=== PATIENT | male | born 1975 | race Caucasian/White ===

== ENCOUNTER 2019-06-14 20:38 | Emergency (ER) | payer BC ==
[2019-06-14] MEDS ORDERED: Diphtheria,Pertussis(Acell),Tetanus Vaccine 0.5 ML Syringe IM ONE (20:58)
--- NOTE | 2019-06-14 21:05 | EDM.PDOC ---
ED HPI GENERAL MEDICAL PROBLEM - General Chief Complaint: Upper Extremity Injury/Pain Stated Complaint: SLAMMED FINGER IN THE DOOR Time Seen by Provider: 06/14/19 20:38 Source of Information: Reports: Patient History Limitations: Reports: No Limitations - History of Present Illness INITIAL COMMENTS - FREE TEXT/NARRATIVE: Pt. states that he slammed his L index finger in the car door at around 10AM. He states that the finger has continued to ooze blood throughout the day. Denies any injury elsewhere. His medical record indicates that his tetanus has not been updated since 1995. Onset Date: 06/14/19 Onset Time: 09:00 Location: Reports: Upper Extremity, Left Severity: Moderate Improves with: Reports: Rest Worsens with: Reports: Movement Left Finger-Index Pain Score (Numeric/FACES): 6 - Related Data Allergies Allergy/AdvReac Type Severity Reaction Status Date / Time No Known Allergies Allergy Verified 06/14/19 21:04 Home Meds: Home Meds Benzonatate [Tessalon Perle] 1 cap PO TID PRN 06/14/19 [History] Doxycycline [Vibramycin] 1 cap PO BID 06/14/19 [History] Past Medical History - Past Health History Medical/Surgical History: Denies Medical/Surgical History Review of Systems - Review of Systems Review Of Systems: See Below Musculoskeletal: Reports: Other (approx. 2 cm superficial laceration to lateral aspect of L index finger.) ED EXAM, GENERAL - Physical Exam Exam: See Below Exam Limited By: No Limitations General Appearance: Alert, WD/WN, No Apparent Distress Extremities: Other (2 cm laceration to L lateral index finger) ED TRAUMA EXTREMITY PROCEDURES - Laceration/Wound Repair Left Lateral Digit - 2nd (Index) Lac/Wound Length In cm: 2 Appearance: Superficial Distal NVT: Neuro & Vascular Intact Skin Prep: Chlorhexidine (Hibiciens), Saline Exploration/Debridement/Repair: Wound Explored Closed With: Dermabond Course - Vital Signs Last Recorded V/S: Last Vital Signs Temp 37.0 C 06/14/19 20:58 Pulse 83 06/14/19 20:58 Resp 12 06/14/19 20:58 BP 131/78 06/14/19 20:58 Pulse Ox 95 06/14/19 20:58 - Orders/Labs/Meds Meds: Medications Discontinued Medications Generic Name Dose Route Start Last Admin Trade Name Freq PRN Reason Stop Dose Admin Diphtheria/Tetanus/Acell Pertussis 0.5 ml 06/14/19 20:58 Adacel IM 06/14/19 20:59 .ONCE ONE - Radiology Interpretation Free Text/Narrative:: Radiographs of the digit did not reveal any acute fracture Departure - Departure Time of Disposition: 21:20 Disposition: Home, Self-Care 01 Condition: Good Clinical Impression: Laceration, Finger laceration - Discharge Information *PRESCRIPTION DRUG MONITORING PROGRAM REVIEWED*: Yes *COPY OF PRESCRIPTION DRUG MONITORING REPORT IN PATIENT RENATA: Yes Instructions: Laceration Care, Adult Referrals: PCP,None [Primary Care Provider] - Forms: ED Department Discharge Additional Instructions: ibuprofen as needed for pain Ice finger for 10 min every hour Recheck in clinic in 7-10 days as needed if still having pain Sepsis Event Note - Focused Exam Date Exam was Performed: 06/19/19 Time Exam was Performed: 01:48 - Assessment/Plan Plan: ibuprofen as needed for pain Ice finger for 10 min every hour Recheck in clinic in 7-10 days as needed if still having pain
--- NOTE | 2019-06-15 07:31 | CR ---
[id number] RAD/RAD Fingers Left EXAM: LEFT FINGERS 3 VIEWS INDICATION: SLAMMED FINGER IN DOOR COMPARISON: None. DISCUSSION: Second digit soft tissue swelling. Chronic ununited ulnar styloid fracture. No acute fracture or dislocation is identified. IMPRESSION: 1. No acute osseous findings. Sourav Harkins MD 06/15/19 0728 Thank you for allowing us to participate in the care of your patient.
== END 2019-06-14 21:20 | disposition home or self-care (01) ==
LOC: VM.ED 20:38
DX: S61.211A Laceration without foreign body of left index finger without damage to nail, initial encounter (principal); W23.0XXA Caught, crushed, jammed, or pinched between moving objects, initial encounter
CPT/HCPCS: 12001; 73140-F1; 99283-25